=== PATIENT | female | born 1960 | race Caucasian/White ===

== ENCOUNTER 2022-02-10 12:54 | Outpatient (CLI) | payer OTHER | END 2022-02-10 12:55 | disposition home or self-care (01) | LOC: LABBT 12:54 | PROVIDERS: ATTEND Internal Medicine Gastroenterology | DX: Z01.812 Encounter for preprocedural laboratory examination (principal); K92.1 Melena; N18.9 Chronic kidney disease, unspecified; E66.01 Morbid (severe) obesity due to excess calories; Z98.1 Arthrodesis status; Z87.19 Personal history of other diseases of the digestive system; R10.12 Left upper quadrant pain; Z20.822 Contact with and (suspected) exposure to COVID-19 | CPT/HCPCS: 87811 ==

== ENCOUNTER → 2022-02-15 | Day surgery (SDC) | payer OTHER ==
[2022-02-14 12:46] VITALS: BMI 49.1
[~2022-02-15] MED LIST: Lidocaine 1% MPF 2 ML VIAL ONE; Lidocaine 1% PF 5 ML VIAL ONE; PROPOFOL 200 MG/20 ML VIAL ONE; ePHEDrine 50 MG/ML VIAL ONE; fentaNYL Citrate/PF 100 MCG/2 ML SYRINGE ONE
== END | disposition home or self-care (01) ==
LOC: SDC 05:57
PROVIDERS: ATTEND Internal Medicine Gastroenterology
PROC: 0DBN8ZX Excision of Sigmoid Colon, Via Natural or Artificial Opening Endoscopic, Diagnostic (ICD-10-PCS; principal; 2022-02-15)
PROC: 0DB98ZX Excision of Duodenum, Via Natural or Artificial Opening Endoscopic, Diagnostic (ICD-10-PCS; principal; 2022-02-15)
PROC: 0DBK8ZX Excision of Ascending Colon, Via Natural or Artificial Opening Endoscopic, Diagnostic (ICD-10-PCS; principal; 2022-02-15)
PROC: 3E0H8GC Introduction of Other Therapeutic Substance into Lower GI, Via Natural or Artificial Opening Endoscopic (ICD-10-PCS; principal; 2022-02-15)
PROC: 0DBL8ZX Excision of Transverse Colon, Via Natural or Artificial Opening Endoscopic, Diagnostic (ICD-10-PCS; principal; 2022-02-15)
PROC: 0DBM8ZX Excision of Descending Colon, Via Natural or Artificial Opening Endoscopic, Diagnostic (ICD-10-PCS; principal; 2022-02-15)
DX: K92.1 Melena (principal); D12.2 Benign neoplasm of ascending colon; D12.3 Benign neoplasm of transverse colon; D12.4 Benign neoplasm of descending colon; D12.7 Benign neoplasm of rectosigmoid junction; M32.9 Systemic lupus erythematosus, unspecified; N18.9 Chronic kidney disease, unspecified; D89.89 Other specified disorders involving the immune mechanism, not elsewhere classified; K21.9 Gastro-esophageal reflux disease without esophagitis; M19.90 Unspecified osteoarthritis, unspecified site; J45.909 Unspecified asthma, uncomplicated; E78.00 Pure hypercholesterolemia, unspecified; E66.01 Morbid (severe) obesity due to excess calories; Z68.42 Body mass index [BMI] 45.0-49.9, adult; Z87.891 Personal history of nicotine dependence; Z79.899 Other long term (current) drug therapy; Z88.0 Allergy status to penicillin; Z88.1 Allergy status to other antibiotic agents; Z88.2 Allergy status to sulfonamides; Z88.8 Allergy status to other drugs, medicaments and biological substances; Z91.013 Allergy to seafood; Z91.030 Bee allergy status; Z91.038 Other insect allergy status; Z91.048 Other nonmedicinal substance allergy status; Z98.1 Arthrodesis status
CPT/HCPCS: 88305; C1776; J2704; J3490

== ENCOUNTER 2022-06-13 15:33 | Inpatient (IN) | payer OTHER ==
[2022-06-13 17:00] LABS: #Eosinphils 0.1 thou/uL (0.0-0.7); #Lymphocytes 2.1 thou/uL (1.20-3.40); #Monocytes 0.6 thou/uL (0.11-0.59); #Neutrophils 4.9 thou/uL (1.40-6.50); %Eosinophils 1.7 % (0.0-10.0); %Lymphocytes 27.2 % (21.0-51.0); %Monocytes 7.7 % (0.0-10.0); %Neutrophils 63.4 % (42.0-75.0); Hemoglobin 13.2 g/dL (12.0-16.0); Mean Corpuscular HGB CONC 32.3 g/dL (32.0-36.0); Mean Corpuscular Hemoglobin 29.9 pg (27.0-31.0); Mean Corpuscular Volume 92.7 fl (78.0-98.0); Mean Platelet Volume 8.8 fL (7.4-10.4); Platelet Count 195 thou/uL (130-400); RBC Distribution Width 12.6 % (11.5-14.5); Red Blood Cell (RBC) Count 4.41 mill/uL (4.20-5.40); White Blood Cell (WBC) Count 7.7 thou/uL (4.8-10.8)
[2022-06-13] MEDS ORDERED: fentaNYL PF 100 MCG/2 ML SYRINGE ONE (20:21)
[2022-06-13] MEDS ORDERED: Midazolam HCl 2 mg/2 ml Vial ONE (20:21)
[2022-06-13] MEDS ORDERED: Bacitracin Zinc Ointment 30 gm TUBE ONE (20:26)
[2022-06-13] MEDS ORDERED: Neomycin-Polymyxin 1 ML AMP ONE (20:26)
[2022-06-13] MEDS ORDERED: Bupivacaine PF 0.5% 30 ML VIAL ONE (20:26)
[2022-06-13] MEDS ORDERED: Vancomycin 1 GM/200 ML (PREMIX) BAG ONE (20:39)
[2022-06-13] MEDS ORDERED: Milk Of Magnesia 30 ML UDCUP PO PRN (20:44)
[2022-06-13] MEDS ORDERED: Ondansetron PF 4 MG/2 ML Vial SLOW IVP PRN (20:44)
[2022-06-13] MEDS ORDERED: traMADol HCl 50 MG TAB PO PRN (20:44)
[2022-06-13] MEDS ORDERED: Acetaminophen 325 MG TAB PO PRN (20:44)
[2022-06-13] MEDS ORDERED: FENTANYL 50 MCG/ML 1 ML VIAL SLOW IVP PRN (20:44)
[2022-06-13] MEDS ORDERED: Acetaminophen/Codeine 30-300mg Tablet PO PRN (20:44)
[2022-06-13] MEDS ORDERED: Pharmacy to Dose : VANC/ABX'S IVPB PRN (20:45)
[2022-06-13] MEDS ORDERED: PROPOFOL 200 MG/20 ML VIAL ONE (20:48)
[2022-06-13] MEDS ORDERED: Ondansetron PF 4 MG/2 ML Vial ONE ×2 (20:48→20:58)
[2022-06-13] MEDS ORDERED: PHENYLEPHRINE-NS 100 MCG/ML 10 ML SYRINGE ONE (20:48)
[2022-06-13] MEDS ORDERED: diphenhydrAMINE 50 MG/ML VIAL ONE (20:48)
[2022-06-13] MEDS ORDERED: Metoclopramide HCl 10 MG/2 ML VIAL ONE (20:48)
[2022-06-13] MEDS ORDERED: Meperidine HCl/PF 25 MG/ML VIAL IM PRN (20:54)
[2022-06-13] MEDS ORDERED: Vancomycin 1.25 GM in Premix Bag 1 BAG IVPB SCH (21:00)
[2022-06-13] MEDS ORDERED: Aspirin 81 mg Enteric Coated Tablet PO SCH (21:00)
[2022-06-13] MEDS ORDERED: HYDROmorphone 2 MG/ML VIAL ONE (21:56)
[2022-06-13] MEDS ORDERED: TETANUS, DIPHTHERIA TOX,ADULT (TDVAX) 0.5 ML VIAL IM ONE (22:00)
[2022-06-13] MEDS ORDERED: FENTANYL 50 MCG/ML 1 ML VIAL ONE ×3 (22:18→23:02)
[2022-06-13] MEDS ORDERED: Vancomycin 1 GM in Premix Bag 1 BAG IVPB SCH (22:30)
[2022-06-14] MEDS: Ketorolac Tromethamine 30 MG/ML VIAL IVP PRN (00:58)
[2022-06-14] MEDS: HYDROcodone/Acetaminophen 5/325 mg Tablet PO PRN ×3 (03:19→14:14)
[2022-06-14 06:40] LABS: #Eosinphils 0.1 thou/uL (0.0-0.7); #Lymphocytes 2.1 thou/uL (1.20-3.40); #Monocytes 0.6 thou/uL (0.11-0.59); #Neutrophils 4.3 thou/uL (1.40-6.50); %Basophils 0.2 % (0.0-1.0); %Eosinophils 1.9 % (0.0-10.0); %Lymphocytes 29.6 % (21.0-51.0); %Monocytes 8.2 % (0.0-10.0); %Neutrophils 60.2 % (42.0-75.0); Hemoglobin 11.5 g/dL (12.0-16.0); Mean Corpuscular HGB CONC 32.2 g/dL (32.0-36.0); Mean Corpuscular Volume 93.3 fl (78.0-98.0); Platelet Count 178 thou/uL (130-400); RBC Distribution Width 12.7 % (11.5-14.5); Red Blood Cell (RBC) Count 3.83 mill/uL (4.20-5.40); White Blood Cell (WBC) Count 7.1 thou/uL (4.8-10.8)
[2022-06-14] MEDS: Vancomycin 1.5 GRAM/300 ML BAG 1.5 GM in Premix Bag 1 BAG IVPB SCH ×2 (08:38→20:57)
[2022-06-14] MEDS ORDERED: Aspirin 81 mg Enteric Coated Tablet PO SCH (09:00)
[2022-06-14] MEDS: Morphine 4 MG/ML VIAL SLOW IVP PRN ×3 (11:39→20:55)
[2022-06-14] MEDS ORDERED: Loratadine 10 MG TAB PO SCH (13:00)
[2022-06-14] MEDS ORDERED: Levothyroxine Sodium 100 MCG TAB PO SCH (13:00)
[2022-06-14] MEDS: K-Phos Neutral 250 MG TAB PO SCH (17:29)
[2022-06-15 02:39] VITALS: BMI 48.9
[2022-06-15] MEDS: Levothyroxine Sodium 100 MCG TAB PO SCH (05:54)
[2022-06-15] MEDS: Morphine 4 MG/ML VIAL SLOW IVP PRN (05:54)
[2022-06-15 08:22] LABS: Vancomycin, Trough 15.1 ug/mL
[2022-06-15] MEDS: Vancomycin 1.5 GRAM/300 ML BAG 1.5 GM in Premix Bag 1 BAG IVPB SCH ×2 (10:03→21:16)
[2022-06-15] MEDS: Ketorolac Tromethamine 30 MG/ML VIAL IVP PRN (10:16)
[2022-06-15] MEDS: Furosemide 80 MG TAB PO SCH (10:25)
[2022-06-15] MEDS: K-Phos Neutral 250 MG TAB PO SCH ×2 (10:25→19:41)
[2022-06-15] MEDS: Loratadine 10 MG TAB PO SCH (10:25)
[2022-06-15] MEDS ORDERED: diphenhydrAMINE 25 MG CAP PO PRN (13:28)
[2022-06-15] MEDS ORDERED: Bupivacaine/Epinephrine 0.25% 30 ML VIAL ONE (15:14)
[2022-06-15] MEDS ORDERED: Neomycin-Polymyxin 1 ML AMP ONE (15:14)
[2022-06-15] MEDS ORDERED: Thrombin 5000 UNITS/5 ML VIAL ONE (15:28)
[2022-06-15] MEDS ORDERED: Bupivacaine PF 0.5% 30 ML VIAL ONE (15:28)
[2022-06-15] MEDS ORDERED: Bacitracin Zinc Ointment 30 gm TUBE ONE (15:28)
[2022-06-15] MEDS ORDERED: Midazolam HCl 2 mg/2 ml Vial ONE (16:27)
[2022-06-15] MEDS ORDERED: fentaNYL PF 100 MCG/2 ML SYRINGE ONE (16:27)
[2022-06-15] MEDS ORDERED: Dexamethasone 20 MG/5 ML VIAL ONE (16:48)
[2022-06-15] MEDS ORDERED: PROPOFOL 200 MG/20 ML VIAL ONE (16:48)
[2022-06-15] MEDS ORDERED: Ondansetron PF 4 MG/2 ML Vial ONE (16:48)
[2022-06-15] MEDS ORDERED: FENTANYL 50 MCG/ML 1 ML VIAL ONE ×5 (17:32→18:08)
[2022-06-15] MEDS ORDERED: Promethazine HCl 25 MG/ML VIAL IVPB PRN (17:34)
[2022-06-15] MEDS ORDERED: Ondansetron HCl/PF 4 MG/2 ML Vial IVP PRN (17:34)
[2022-06-15] MEDS ORDERED: Promethazine HCl 25 MG/ML VIAL IM PRN (17:34)
[2022-06-15] MEDS ORDERED: HYDROmorphone 2 MG/ML VIAL SLOW IVP PRN (17:34)
[2022-06-15] MEDS ORDERED: hydrALAZINE 20 MG/ML VIAL SLOW IVP PRN (17:35)
[2022-06-15] MEDS ORDERED: HYDROcodone/Acetaminophen 5/325 mg Tablet PO PRN (17:38)
[2022-06-15] MEDS ORDERED: Albuterol Sulfate 2.5 mg/3 ml Neb NEB PRN (18:30)
[2022-06-15] MEDS ORDERED: POTASSIUM PHOSPHATE DIBASIC PO SCH (21:00)
[2022-06-15] MEDS ORDERED: [UNRECOGNIZED DRUG - OTHER] PO SCH (21:00)
[2022-06-15] MEDS: traMADol HCl 50 MG TAB PO SCH (21:18)
[2022-06-16] MEDS: Levothyroxine Sodium 100 MCG TAB PO SCH (06:35)
[2022-06-16] MEDS: K-Phos Neutral 250 MG TAB PO SCH ×2 (07:20→16:23)
[2022-06-16] MEDS: Loratadine 10 MG TAB PO SCH (09:18)
[2022-06-16] MEDS: traMADol HCl 50 MG TAB PO SCH ×2 (09:18→22:03)
[2022-06-16] MEDS: Vancomycin 1.5 GRAM/300 ML BAG 1.5 GM in Premix Bag 1 BAG IVPB SCH ×2 (09:18→22:02)
[2022-06-16] MEDS: Furosemide 80 MG TAB PO SCH (09:19)
[2022-06-16] MEDS: Morphine 4 MG/ML VIAL SLOW IVP PRN (17:44)
[2022-06-16 20:34] LABS: Vancomycin, Trough 14.1 ug/mL
[2022-06-17] MEDS: Levothyroxine Sodium 100 MCG TAB PO SCH (06:13)
[2022-06-17] MEDS: Furosemide 80 MG TAB PO SCH (08:56)
[2022-06-17] MEDS: Loratadine 10 MG TAB PO SCH (08:56)
[2022-06-17] MEDS: traMADol HCl 50 MG TAB PO SCH (08:56)
[2022-06-17] MEDS: K-Phos Neutral 250 MG TAB PO SCH (08:56)
[2022-06-17] MEDS: Vancomycin 1.5 GRAM/300 ML BAG 1.5 GM in Premix Bag 1 BAG IVPB SCH (08:57)
[2022-06-17 09:04] VITALS: BP 117/78
[2022-06-17 09:19] VITALS: TEMP 99.1
== END 2022-06-17 09:45 | disposition home or self-care (01) | DRG 501 ==
LOC: SDC 15:33 → MSONC 20:44
PROVIDERS: ADMIT Orthopaedic Surgery Hand Surgery; ATTEND Orthopaedic Surgery Hand Surgery
PROC: 0LB50ZZ Excision of Right Lower Arm and Wrist Tendon, Open Approach (ICD-10-PCS; principal; 2022-06-13)
PROC: 0RBN0ZZ Excision of Right Wrist Joint, Open Approach (ICD-10-PCS; 2022-06-13)
PROC: 0LB50ZZ Excision of Right Lower Arm and Wrist Tendon, Open Approach (ICD-10-PCS; 2022-06-15)
DX: M65.131 Other infective (teno)synovitis, right wrist (principal); L02.413 Cutaneous abscess of right upper limb; Z68.42 Body mass index [BMI] 45.0-49.9, adult; S61.551A Open bite of right wrist, initial encounter; E03.9 Hypothyroidism, unspecified; J45.909 Unspecified asthma, uncomplicated; M32.9 Systemic lupus erythematosus, unspecified; E66.01 Morbid (severe) obesity due to excess calories; W55.01XA Bitten by cat, initial encounter; Z98.51 Tubal ligation status; Z90.49 Acquired absence of other specified parts of digestive tract
CPT/HCPCS: 36415; 80202; 85025; 85652; 87070; 87205; 88307; 97139; J1100; J1170; J1200; J1885; J1956; J2250; J2270; J2405; J2704; J2765; J3010; J3370; S0020

== ENCOUNTER 2022-06-20 13:11 | Day surgery (SDC) | payer OTHER ==
[2022-06-20] MEDS ORDERED: Morphine 2 MG/ML VIAL ONE (14:44)
[2022-06-20] MEDS ORDERED: Levofloxacin 500 mg/D5W 100 ml Premix Bag ONE (15:08)
[2022-06-20] MEDS ORDERED: Midazolam HCl 2 mg/2 ml Vial ONE (20:44)
[2022-06-20] MEDS ORDERED: fentaNYL PF 100 MCG/2 ML SYRINGE ONE (20:45)
[2022-06-20] MEDS ORDERED: Neomycin-Polymyxin 1 ML AMP ONE (20:57)
[2022-06-20] MEDS ORDERED: Bacitracin Zinc Ointment 30 gm TUBE ONE (20:57)
[2022-06-20] MEDS ORDERED: Thrombin 5000 UNITS/5 ML VIAL ONE (20:57)
[2022-06-20] MEDS ORDERED: Bupivacaine PF 0.5% 30 ML VIAL ONE (20:57)
[2022-06-20] MEDS ORDERED: Mineral Oil Sterile 10 ML VIAL ONE (20:58)
[2022-06-20] MEDS ORDERED: ePHEDrine 50 MG/ML VIAL ONE (21:19)
[2022-06-20] MEDS ORDERED: PROPOFOL 200 MG/20 ML VIAL ONE (21:19)
[2022-06-20] MEDS ORDERED: PHENYLEPHRINE-NS 100 MCG/ML 10 ML SYRINGE ONE (21:19)
[2022-06-20] MEDS ORDERED: Ondansetron PF 4 MG/2 ML Vial ONE (21:19)
[2022-06-20] MEDS ORDERED: Dexamethasone 20 MG/5 ML VIAL ONE (21:19)
[2022-06-20] MEDS ORDERED: Clindamycin/D5W 900 mg/50 ml Premix Bag ONE (21:47)
[2022-06-20] MEDS ORDERED: FENTANYL 50 MCG/ML 1 ML VIAL ONE (22:44)
[2022-06-20] MEDS ORDERED: HYDROcodone/Acetaminophen 5/325 mg Tablet ONE (23:12)
== END 2022-06-20 23:50 | disposition home or self-care (01) ==
LOC: SDC 13:11
PROVIDERS: ATTEND Orthopaedic Surgery Hand Surgery
PROC: 0XQJ0ZZ Repair Right Hand, Open Approach (ICD-10-PCS; principal; 2022-06-20)
PROC: 0XQG0ZZ Repair Right Wrist Region, Open Approach (ICD-10-PCS; principal; 2022-06-20)
DX: S61.451A Open bite of right hand, initial encounter (principal); S61.551A Open bite of right wrist, initial encounter; M65.88 Other synovitis and tenosynovitis, other site; Z88.0 Allergy status to penicillin; Z88.1 Allergy status to other antibiotic agents; Z88.2 Allergy status to sulfonamides; Z88.6 Allergy status to analgesic agent; Z88.8 Allergy status to other drugs, medicaments and biological substances; Z91.048 Other nonmedicinal substance allergy status; Z96.652 Presence of left artificial knee joint; Z98.1 Arthrodesis status; Z98.890 Other specified postprocedural states; W55.01XA Bitten by cat, initial encounter
CPT/HCPCS: J1100; J1956; J2250; J2270; J2405; J2704; J3010; J3490; S0020

== ENCOUNTER 2022-11-18 10:03 | Outpatient (CLI) | payer OTHER | END 2022-11-18 10:04 | disposition home or self-care (01) | LOC: TBSIIMAG 10:03 | PROVIDERS: ATTEND Orthopaedic Surgery Hand Surgery | DX: M24.541 Contracture, right hand (principal); M19.041 Primary osteoarthritis, right hand; S63.591A Other specified sprain of right wrist, initial encounter; M67.88 Other specified disorders of synovium and tendon, other site; M24.131 Other articular cartilage disorders, right wrist ==

== ENCOUNTER 2022-12-16 14:46 | Outpatient (CLI) | payer OTHER ==
[2022-12-16 16:06] LABS: #Basophils 0.1 10x3/uL (0.0-0.2); #Eosinphils 0.2 10x3/uL (0.0-0.5); #Monocytes 0.5 10x3/uL (0.0-1.1); #Neutrophils 4.7 10x3/uL (1.5-8.4); %Basophils 0.7 % (0.0-2.0); %Eosinophils 2.2 % (0.0-6.0); %Lymphocytes 27.8 % (18.0-47.0); %Monocytes 7.1 % (0.0-10.0); %Neutrophils 61.9 % (40.0-75.0); Hemoglobin 13.9 g/dL (12.0-15.5); Mean Corpuscular HGB CONC 32.7 g/dL (32.0-36.0); Mean Corpuscular Volume 88.5 fl (81.6-98.3); Mean Platelet Volume 11.6 fl (7.4-10.4); Platelet Count 239 10x3/uL (150-450); RBC Distribution Width 12.9 % (11.5-14.5); White Blood Cell (WBC) Count 7.6 10x3/uL (3.5-10.5)
[2022-12-16 16:27] LABS: Anion Gap 15 mmol/L (10-20); BUN (Urea Nitrogen) 17 mg/dL (9.8-20.1); Calc. Creatinine Clearance 0 mL/min (70-130); Calcium 9.7 mg/dL (7.8-10.44); Carbon Dioxide 26 mmol/L (23-31); Chloride 102 mmol/L (98-107); Estimated GFR 79; Glucose 102 mg/dL (80-115); Sodium 139 mmol/L (136-145)
== END 2022-12-16 14:47 | disposition home or self-care (01) ==
LOC: LABBT 14:46
PROVIDERS: ATTEND Orthopaedic Surgery Hand Surgery
DX: Z01.812 Encounter for preprocedural laboratory examination (principal); S63.591A Other specified sprain of right wrist, initial encounter; M65.331 Trigger finger, right middle finger; M24.50 Contracture, unspecified joint; M67.40 Ganglion, unspecified site; M66.241 Spontaneous rupture of extensor tendons, right hand
CPT/HCPCS: 80048; 85025

== ENCOUNTER 2022-12-20 10:29 | Day surgery (SDC) | payer OTHER ==
[2022-12-16 15:13] VITALS: BMI 46.3
[2022-12-20] MEDS ORDERED: Levofloxacin 500 mg/D5W 100 ml Premix Bag ONE (11:11)
[2022-12-20] MEDS ORDERED: Bupivacaine PF 0.5% 30 ML VIAL ONE ×2 (11:46→13:09)
[2022-12-20] MEDS ORDERED: fentaNYL 50 mcg/mL 1 mL Vial ONE (11:46)
[2022-12-20] MEDS ORDERED: Midazolam HCl 2 mg/2 ml Vial ONE (11:46)
[2022-12-20] MEDS ORDERED: Fentanyl 250 MCG/5 ML VIAL ONE (12:50)
[2022-12-20] MEDS ORDERED: Vancomycin 1 GM VIAL ONE (13:09)
[2022-12-20] MEDS ORDERED: Bacitracin Zinc Ointment 30 gm TUBE ONE (13:09)
[2022-12-20] MEDS ORDERED: Clindamycin/D5W 600 MG in Premix Bag 1 BAG IVPB SCH (13:30)
[2022-12-20] MEDS ORDERED: Clindamycin/D5W 300 MG in Premix Bag 1 BAG IVPB SCH (13:30)
[2022-12-20] MEDS ORDERED: Famotidine/PF 20 mg/2ml Vial ONE (13:32)
[2022-12-20] MEDS ORDERED: Clindamycin/D5W 600 mg/50 ml Premix Bag ONE (13:32)
[2022-12-20] MEDS ORDERED: PROPOFOL 200 MG/20 ML VIAL ONE (13:39)
[2022-12-20] MEDS ORDERED: Lidocaine 1% PF 5 ML VIAL ONE (13:39)
[2022-12-20] MEDS ORDERED: Succinylcholine Chloride 100 MG/5 ML SYRINGE FS ONE (13:39)
[2022-12-20] MEDS ORDERED: EPINEPHrine 1 MG/ML AMP ONE (14:15)
[2022-12-20] MEDS ORDERED: Thrombin 5000 UNITS/5 ML VIAL ONE (14:58)
== END 2022-12-20 17:31 | disposition home or self-care (01) ==
LOC: SDC 10:29
PROVIDERS: ATTEND Orthopaedic Surgery Hand Surgery
DX: S63.591A Other specified sprain of right wrist, initial encounter (principal); M65.831 Other synovitis and tenosynovitis, right forearm; M65.841 Other synovitis and tenosynovitis, right hand; M65.331 Trigger finger, right middle finger; M77.8 Other enthesopathies, not elsewhere classified; E07.9 Disorder of thyroid, unspecified; G89.29 Other chronic pain; Z87.891 Personal history of nicotine dependence; Z79.890 Hormone replacement therapy; Z79.899 Other long term (current) drug therapy; Z88.0 Allergy status to penicillin; Z88.1 Allergy status to other antibiotic agents; Z88.2 Allergy status to sulfonamides; Z88.6 Allergy status to analgesic agent; Z88.8 Allergy status to other drugs, medicaments and biological substances; Z91.048 Other nonmedicinal substance allergy status; Z98.890 Other specified postprocedural states
CPT/HCPCS: 88305; J0171; J1956; J2250; J2704; J3010; J3370; J3490; S0020; S0028